=== PATIENT | female | born 1950 | race Two or more races ===

== ENCOUNTER 2018-06-27 19:23 | Inpatient (IN) | payer MEDICARE, OTHER ==
[~2018-06-27] VITALS: Ht 157.5 cm; Wt 72.7 kg
[~2018-06-27 19:23] MED LIST: LEVA15HF4 IH; NO CURRENT MEDS
--- NOTE | 2018-06-27 19:38 | NUR ---
PT PRESENTED TO THE ER WITH A C/O ASTHMA EXACERBATION. PT STATED THAT SHE HAS HAD A COLD FOR 3 DAYS AND USES A VENTOLIN INHALER WHICH HAS NOT HELPED. PT STATED THAT SHE WAS DX WITH ASTHMA 12-13 YRS AGO AND IT HAS NOT BEEN BAD. TODAY SHE IS HAVING A HARD TIME TAKING A DEEP BREATH WITHOUT COUGHING. Betsy CAMPBELL PAC IS AT THE BEDSIDE EVALUATING THE PT.
[2018-06-27] MEDS ORDERED: predniSONE 20 MG TABLET ONE (19:43)
--- NOTE | 2018-06-27 19:44 | NUR ---
RT CALLED RE: BREATHING TX.
--- NOTE | 2018-06-27 19:46 | NUR ---
CXR DONE AT THE BEDSIDE.
[2018-06-27] MEDS ORDERED: ALBUTEROL FS 2.5 MG/3 ML VIAL.NEB ONE (19:51)
[2018-06-27] MEDS ORDERED: IPRATROPIUM NEB FS 0.5 MG/2.5 ML AMPUL.NEB ONE (19:51)
[2018-06-27] MEDS ORDERED: ALBUTEROL FS 2.5 MG/3 ML VIAL.NEB CONTNEB ONE (20:00)
[2018-06-27] MEDS ORDERED: IPRATROPIUM NEB FS 0.5 MG/2.5 ML AMPUL.NEB NEB ONE (20:00)
[2018-06-27] MEDS ORDERED: predniSONE 20 MG TABLET PO ONE (20:00)
--- NOTE | 2018-06-27 20:42 | NUR ---
PT APPEARS TO BE COMFORTABLE. BREATHING TX IS IN PROGRESS.
--- NOTE | 2018-06-27 21:01 | NUR ---
CALLED NIDHI RE: CXR. CXR TO BE READ.
--- NOTE | 2018-06-27 21:06 | NUR ---
BREATHING TX IS FINISHED. PT SOUNDS BETTER AND RESP ARE EVEN AND UNLABORED.
[2018-06-27] MEDS ORDERED: AZITHROMYCIN 250 MG TABLET ONE (21:20)
--- NOTE | 2018-06-27 21:24 | NUR ---
PT REC'D MEDICATION ORDERED. BLOOD WAS DRAWN BY AIR TRAFFIC CONTROL SPECIALIST AND EKG IS IN PROGRESS AT THE BEDSIDE.
[2018-06-27 21:27] LABS: BASOPHILS % (AUTO) 0.6 % (0.0-2.0); HEMATOCRIT 36 % (33-45); HEMOGLOBIN 12.6 g/dL (11.5-14.8); LYMPHOCYTES # (AUTO) 1.8 /CMM (0.8-4.8); LYMPHOCYTES % (AUTO) 29.5 % (20.0-44.0); MEAN CORPUSCULAR HGB CONC 35 g/dl (31.0-36.0); MEAN CORPUSCULAR VOLUME 84 fL (82-100); MONOCYTES # (AUTO) 0.5 /CMM (0.1-1.30); MONOCYTES % (AUTO) 8.3 % (2.0-12.0); NEUTROPHILS # (AUTO) 3.1 /CMM (1.8-8.9); NEUTROPHILS % (AUTO) 51.6 % (43.0-81.0); PLATELET COUNT (AUTO) 147 /CMM (150-450); WHITE BLOOD COUNT (AUTO) 6.1 K/uL (4.3-11.0)
[2018-06-27] MEDS ORDERED: AZITHROMYCIN 250 MG TABLET PO ONE (21:30)
[2018-06-27 21:35] LABS: CALCIUM, SERUM 8.5 mg/dL (8.5-10.1); CREATININE 0.7 mg/dL (0.6-1.3); POTASSIUM 3.4 mmol/L (3.5-5.1)
[2018-06-27 21:52] LABS: ALBUMIN 3.3 g/dL (3.4-5.0); BILIRUBIN,DIRECT 0.1 mg/dL (0.0-0.2); BILIRUBIN,TOTAL 0.2 mg/dL (0.2-1.0); TOTAL PROTEIN, SERUM 6.4 g/dL (6.4-8.2)
--- NOTE | 2018-06-27 22:55 | NUR ---
DR MENDOZA IS AT THE BEDSIDE SPEAKING TO THE PT.
--- NOTE | 2018-06-27 23:03 | NUR ---
PT'S O2 SAT IS 92-93% ON RA. PT IS BEING PLACED ON 2L O2 VIA NC PRECAUTION.
[2018-06-27] MEDS ORDERED: CHOLESTEROL MED PO (23:27)
[2018-06-27] MEDS ORDERED: FISH OIL PO (23:27)
[2018-06-27] MEDS ORDERED: ASPI-1169 PO (23:27)
--- NOTE | 2018-06-27 23:30 | NUR ---
INFLUENZA SWAB DONE.
--- NOTE | 2018-06-27 23:34 | NUR ---
US TECH AT THE BEDSIDE FOR VENOUS DUPLEX.
--- NOTE | 2018-06-27 23:42 | NUR ---
CALLING REPORT TO TELE NURSE. FELIPE CLARK.
[2018-06-28] MEDS ORDERED: MAG HYDROX/AL HYDROX/SIMETH 30 ML UDC PO PRN
[2018-06-28] MEDS ORDERED: ONDANSETRON HCL/PF 4 MG/2 ML VIAL IVP PRN
[2018-06-28] MEDS ORDERED: HYDROCODONE/APAP 5/325MG 1 EACH TABLET PO PRN
[2018-06-28] MEDS ORDERED: IPRATROPIUM NEB FS 0.5 MG/2.5 ML AMPUL.NEB NEB PRN
[2018-06-28] MEDS ORDERED: HYDROCODONE/APAP 10/325MG 1 EA TABLET PO PRN
[2018-06-28] MEDS ORDERED: MAGNESIUM HYDROXIDE 30 ML UDC PO PRN
[2018-06-28] MEDS ORDERED: ALBUTEROL FS 2.5 MG/0.5 ML VIAL.NEB NEB PRN
[2018-06-28] MEDS ORDERED: TEMAZEPAM 15 MG CAPSULE PO PRN
--- NOTE | 2018-06-28 00:01 | NUR ---
VENOUS DUPLEX IS FINISHED AND IS NEGATIVE. B ADRIAN, PAC IS AWARE.
--- NOTE | 2018-06-28 00:22 | NUR ---
CALLED Emily SANTIAGO DNP RE: 2D ECHO STAT ORDER. 2D ECHO TO BE DONE IN THE MORNING.
[2018-06-28 00:23] VITALS: BP 144/77
--- NOTE | 2018-06-28 00:35 | NUR ---
TELE SENIOR SOFTWARE QA ENGINEER INITIAL NOTES ADMIT PT FROM ER VIA [facility] ACCOMPANIED BY ER NURSE AND TECH. DX OF PNA/CAP. PT IS ALERT ORIENTED , AMBULATORY, WITH O2 AT 2 LITERS VIA NC. NO SIGNS OF ANY ACUTE DISTRESS NOTED AT THIS TIME , STILL HAVE SOME WHEEZES HEARD THROUGHOUT , NO RALES OR RHONCHI. ABDOMEN SOFT AND NON-TENDER. POSITIVE BOWEL SOUNDS. NO EDEMA NOTED AND SKIN WARM AND DRY TOUCH. ORIENTED WHERE SHE AT AND HOW TO USED THE CALL LIGHT SYSTEM AND ENCOURAGED HER TO USE IF SHE NEEDS SOME HELP OR ASSISTANCE. TELE APPLIED TO HER CHEST WALL AND EXPLAINED TO THE PT THE PURPOSE OF IT AND PT UNDERSTOOD WELL. HEPLOCK PATENT AND INTACT. OFFERED LIGHT SNACKS . EDUCATE HER REGARDING HER MEDICATION WELL. KEPT HER WARM AND COMFORTABLE AT ALL TIMES ON SEMI FOWLERS POSITION WITH SIDE RAILS X2 UP. CALL LIGHT AT REACH. WILL CONTINUE MONITORING.
[2018-06-28] MEDS: ACETAMINOPHEN 325 MG TABLET PO PRN ×2 (01:03→12:52)
[2018-06-28 01:07] VITALS: BP 144/77
--- NOTE | 2018-06-28 04:00 | NUR ---
TELE STRIPPING AND BOOKING MACHINE OPERATOR NOTES PT SLEEPING COMFORTABLY IN BED WITHOUT ANY ACUTE DISTRESS NOTED TELE SINUS RHYTHM WITH PVC'S ON TELE MONITOR. KEPT HER WARM AND COMFORTABLE AT ALL TIMES. WILL CONTINUE MONITORING. CALL LIGHT AT REACH.
[2018-06-28 04:05] VITALS: BP 135/65
[2018-06-28] MEDS: methylPREDNISolone SOD SUCC 40 MG/ML VIAL IV SCH ×2 (05:40→12:42)
[2018-06-28 06:34] LABS: BASOPHILS % (AUTO) 0.2 % (0.0-2.0); EOSINOPHILS % (AUTO) 0.1 % (0.0-6.0); HEMATOCRIT 37 % (33-45); HEMOGLOBIN 12.6 g/dL (11.5-14.8); LYMPHOCYTES # (AUTO) 0.6 /CMM (0.8-4.8); LYMPHOCYTES % (AUTO) 13.4 % (20.0-44.0); MEAN CORPUSCULAR HGB CONC 34 g/dl (31.0-36.0); MEAN CORPUSCULAR VOLUME 84 fL (82-100); MONOCYTES # (AUTO) 0.1 /CMM (0.1-1.30); MONOCYTES % (AUTO) 1.2 % (2.0-12.0); NEUTROPHILS % (AUTO) 85.1 % (43.0-81.0); PLATELET COUNT (AUTO) 161 /CMM (150-450); RED BLOOD CELL COUNT(AUTO) 4.39 MIL/uL (4.0-5.2); WHITE BLOOD COUNT (AUTO) 4.7 K/uL (4.3-11.0)
[2018-06-28 06:54] LABS: CHOLESTEROL 178 mg/dL (<200); HDL CHOLESTEROL 54 mg/dL (40-60); LDL 117 mg/dL (0-99); TRIGLYCERIDES 21 mg/dL (30-150)
--- NOTE | 2018-06-28 07:00 | NUR ---
TELE SLAG WHEELER CLOSING NOTES PT AWAKE AND ALERT JUST DID HER OWN PERSONAL CARE. PT STATED "THANK YOU FOR PUTTING HUMIDIFIER ON MY O2 . MUCH FEEL BETTER. SLEPT WELL AND NO SIGNS OF ANY SOB. ROUTINE MEDS GIVEN ORDERED. STABLE AFTER ADMISSION. TELE SR WITH PVC'S . VITAL SIGNS WITHIN NORMAL LIMIT. KEPT HER WARM AND COMFORTABLE AT ALL TIMES. PLACE CALL LIGHT AT REACH. WILL CONTINUE MONITORING. ENDORSE.
[2018-06-28 07:01] LABS: CALCIUM, SERUM 8.7 mg/dL (8.5-10.1); CARBON DIOXIDE 23 mmol/L (21-32); CHLORIDE 109 mmol/L (98-107); CREATININE 0.7 mg/dL (0.6-1.3); GLUCOSE 147 mg/dL (74-106); MAGNESIUM 1.9 mg/dL (1.8-2.4); PHOSPHORUS 3.1 mg/dL (2.5-4.9); POTASSIUM 4.2 mmol/L (3.5-5.1); SODIUM SERUM 145 mmol/L (136-145); UREA NITROGEN, BLOOD 11 mg/dL (7-18)
--- NOTE | 2018-06-28 07:30 | NUR ---
SUPERVISOR DATA PROCESSING OPENING NOTE RECEIVED PATIENT IN BED. ALERT ORIENTED X4, ON 2L O2 VIA NC, TOLERATING WELL. IN NO APPARENT DISTRESS OR DISCOMFORT AT THIS TIME. RESPIRATIONS EVEN AND UNLABORED. DENIES PAIN AND SOB. ON TELE MONITOR WITH SR AND HR OF 75. LEFT AC 18G IVC SL, PATENT AND INTACT. PATIENT KEPT CLEAN AND COMFORTABLE, SAFETY MEASURES IN PLACE, BED IN LOW LOCKED POSITION, SIDE RAILS UP X2, CALL LIGHT WITHIN EASY REACH. WILL CONTINUE TO MONITOR.
[2018-06-28 08:00] VITALS: BP 128/70
[2018-06-28] MEDS: PANTOPRAZOLE 40 MG TABLET.DR PO SCH (08:42)
[2018-06-28] MEDS: CEFTRIAXONE 1 G in IV D5W 50 ML IV SCH (08:42)
[2018-06-28] MEDS ORDERED: ASPIRIN 81 MG TAB.CHEW PO SCH (09:00)
[2018-06-28] MEDS ORDERED: POTA-10 PO (12:21)
[2018-06-28] MEDS ORDERED: CARB200T8 PO (12:21)
[2018-06-28] MEDS ORDERED: FLUT1BLS INH (12:21)
[2018-06-28] MEDS ORDERED: OMEG1CAP55 PO (12:21)
[2018-06-28] MEDS ORDERED: FURO20TA4 PO (12:21)
[2018-06-28] MEDS ORDERED: TEMA15CA PO (12:21)
[2018-06-28] MEDS ORDERED: CLON0.1T PO (12:21)
[2018-06-28] MEDS ORDERED: RANI150T8 PO (12:21)
[2018-06-28] MEDS ORDERED: MECL-102 PO (12:21)
[2018-06-28] MEDS ORDERED: PROC10TA29 PO (12:21)
[2018-06-28] MEDS ORDERED: NIFE30TA91 PO (12:21)
[2018-06-28] MEDS ORDERED: ATOR40TA PO (12:21)
[2018-06-28] MEDS ORDERED: CLON0.5T12 PO (12:21)
[2018-06-28] MEDS ORDERED: FLUV50TA3 PO (12:21)
[2018-06-28] MEDS ORDERED: AMYL1CAP58 PO (12:21)
[2018-06-28] MEDS ORDERED: FLUT16SP BNOSTRILS (12:21)
[2018-06-28] MEDS: ALBUTEROL FS 2.5 MG/0.5 ML VIAL.NEB NEB SCH ×3 (15:23→23:30)
[2018-06-28] MEDS: IPRATROPIUM NEB FS 0.5 MG/2.5 ML AMPUL.NEB NEB SCH ×3 (15:32→23:30)
[2018-06-28 16:00] VITALS: BP 143/77
--- NOTE | 2018-06-28 19:16 | NUR ---
MS RN CLOSING NOTE PATIENT IN BED. ALERT ORIENTED X4, ON 2L O2 VIA NC, TOLERATING WELL. IN NO APPARENT DISTRESS OR DISCOMFORT AT THIS TIME. RESPIRATIONS EVEN AND UNLABORED. DENIES PAIN AND SOB. LEFT AC 18G IVC SL, PATENT AND INTACT. PATIENT KEPT CLEAN AND COMFORTABLE, ALL NEEDS ATTENDED, ORDERS RENDERED. SAFETY MEASURES IN PLACE, BED IN LOW LOCKED POSITION, SIDE RAILS UP X2, CALL LIGHT WITHIN EASY REACH. WILL ENDORSE TO PM NURSE FOR KUMAR.
--- NOTE | 2018-06-28 19:50 | NUR ---
MS RN NOTES RECEIVED PATIENT AWAKE IN BED AND WATCHING TV WITH NO DISTRESS NOTED. CALL LIGHT WITHIN REACH. NO C/O PAIN OR DISCOMFORT. PATIENT BREATHING EASILY WITH NO RESPIRATORY DISTRESS NOTED. PERIPHERAL LINE INTACT AND PATENT. ENCOURAGED USE OF CALL LIGHT FOR ASSISTANCE AND VERBALIZED GOOD UNDERSTANDING. BED IN LOW LOCK SETTING. ROOM FREE OF CLUTTER AND BELONGINGS KEPT NEAR BEDSIDE. WILL CONTINUE TO MONITOR.
[2018-06-28 20:00] VITALS: BP 137/80
[2018-06-29] MEDS: IPRATROPIUM NEB FS 0.5 MG/2.5 ML AMPUL.NEB NEB SCH ×3 (04:08→11:30)
[2018-06-29] MEDS: ALBUTEROL FS 2.5 MG/0.5 ML VIAL.NEB NEB SCH ×3 (04:08→11:30)
--- NOTE | 2018-06-29 06:42 | NUR ---
MS RN NOTES PATIENT ASLEEP IN BED WITH NO RESPIRATORY DISTRESS NOTED. CALL LIGHT WITHIN REACH. PERIPHERAL LINE INTACT AND PATENT. NO FURTHER C/O PAIN OR DISCOMFORT. BED IN LOW LOCK SETTING. ALL BELONGINGS KEPT NEAR BEDSIDE. WILL ENDORSE TO ONCOMING SHIFT.
[2018-06-29 07:31] LABS: CALCIUM, SERUM 8.7 mg/dL (8.5-10.1); CREATININE 0.6 mg/dL (0.6-1.3); PHOSPHORUS 3.6 mg/dL (2.5-4.9); POTASSIUM 4.5 mmol/L (3.5-5.1)
--- NOTE | 2018-06-29 07:48 | NUR ---
RN MS OPENING NOTES Received patient on 2L nasal cannula, no sob noted. patient denies pain at this time, patient appears comfortable. Patient's bed at the lowest setting, call light within reach.
[2018-06-29 07:49] LABS: BASOPHILS % (AUTO) 0.1 % (0.0-2.0); HEMATOCRIT 34 % (33-45); HEMOGLOBIN 11.8 g/dL (11.5-14.8); LYMPHOCYTES # (AUTO) 1.1 /CMM (0.8-4.8); LYMPHOCYTES % (AUTO) 8.1 % (20.0-44.0); MEAN CORPUSCULAR HGB CONC 34 g/dl (31.0-36.0); MEAN CORPUSCULAR VOLUME 84 fL (82-100); MONOCYTES # (AUTO) 0.8 /CMM (0.1-1.30); MONOCYTES % (AUTO) 5.4 % (2.0-12.0); NEUTROPHILS # (AUTO) 12.1 /CMM (1.8-8.9); NEUTROPHILS % (AUTO) 86.4 % (43.0-81.0); PLATELET COUNT (AUTO) 170 /CMM (150-450); RED BLOOD CELL COUNT(AUTO) 4.09 MIL/uL (4.0-5.2)
[2018-06-29 08:00] VITALS: BP 121/70
[2018-06-29] MEDS: CEFTRIAXONE 1 G in IV D5W 50 ML IV SCH (08:05)
[2018-06-29] MEDS: PANTOPRAZOLE 40 MG TABLET.DR PO SCH (08:19)
[2018-06-29] MEDS ORDERED: methylPREDNISolone SOD SUCC 40 MG/ML VIAL IV SCH (09:00)
--- NOTE | 2018-06-29 14:28 | NUR ---
RN MS DISCHARGE NOTES Patient left without waiting for the hospitalist to see her, she stated that she just needs the prescription and she can leave. Explained to the patient the benefits of waiting for the hospitalist to talk to her before she leaves, she decides to leave anyway. Patient did not sign anything but does have her prescription and I told her to follow up with her PCP after one week. Patient left with everything she came here with. Patient's vital sign was stable when she left. patient left with her .
== END 2018-06-29 13:00 | disposition home or self-care (01) | DRG 194 ==
LOC: ER 19:23 → TELE 06-28 00:09 → MED 06-28 09:03
PROVIDERS: ADMIT Nurse Practitioner Acute Care; ATTEND Internal Medicine
DX: J15.9 Unspecified bacterial pneumonia (principal); J45.901 Unspecified asthma with (acute) exacerbation; J20.9 Acute bronchitis, unspecified; E78.5 Hyperlipidemia, unspecified; E88.09 Other disorders of plasma-protein metabolism, not elsewhere classified; Z90.710 Acquired absence of both cervix and uterus; I70.0 Atherosclerosis of aorta
CPT/HCPCS: 36415; 71045-TC; 80048-TC; 80061-TC; 80076-TC; 83735-TC; 83880; 84100-TC; 84484-TC; 85025-TC; 85378-TC; 87081-TC; 87400; 93307-TC; 93970-TC; 94799-TC; G0378; J0696; J2920; J7050; J7060

== ENCOUNTER 2021-12-08 21:54 | Inpatient (IN) | payer MEDICARE, OTHER ==
[~2021-12-08] VITALS: Ht 157.5 cm; Wt 86.6 kg
[~2021-12-08 21:54] MED LIST changes: +AMYL1CAP58 PO; +ASPI-1169 PO; +ATOR40TA PO; +CARB200T8 PO; +CLON0.1T PO; +CLON0.5T4 PO; +FLUT16SP BNOSTRILS; +FLUT1BLS INH; +FLUV50TA3 PO; +FURO20TA4 PO; -LEVA15HF4 IH; +MECL-159 PO; +NIFE30TA91 PO; -NO CURRENT MEDS; +OMEG1CAP55 PO; +POTA-10 PO; +PROC10TA29 PO; +RANI150T8 PO; +TEMA15CA PO
[2021-12-08] MEDS ORDERED: ONDANSETRON HCL/PF 4 MG/2 ML VIAL ONE (22:43)
[2021-12-08] MEDS ORDERED: MORPHINE SULFATE INJ 4 MG/ML DISP.SYRIN ONE ×2 (22:44→23:27)
[2021-12-08 22:57] LABS: BILIRUBIN,URINE NEGATIVE (NEGATIVE); COLOR,URINE YELLOW (YELLOW); LEUKOCYTE ESTERASE ,URINE SMALL (NEGATIVE); NITRITE, URINE NEGATIVE (NEGATIVE); PROTEIN,URINE TRACE mg/dl (NEGATIVE); UGLUCOSE NEGATIVE (NEGATIVE); UROBILINOGEN,URINE 0.2 EU/dL (0.2)
[2021-12-08] MEDS ORDERED: MORPHINE SULFATE INJ 2 MG/ML DISP.SYRIN IV ONE (23:00)
[2021-12-08] MEDS ORDERED: IV NS 0.9% 1,000 ML BAG IV ONE (23:00)
[2021-12-08] MEDS ORDERED: ONDANSETRON HCL/PF 4 MG/2 ML VIAL IVP ONE (23:00)
--- NOTE | 2021-12-08 23:20 | NUR ---
BIBHUSBAND C/O ABD PAIN WITH N/V STARTED AT NOON. PT AWAKE AND ALERT X4 BREATHING UNLABORED / ABD PAIN. AMBULATES WITH STEADY GAIT. CHANGED INTO GOWN AND PLACED ON MONITOR AND V/S WNL.
--- NOTE | 2021-12-08 23:22 | NUR ---
20G AT [facility]. BLOOD DRAWN AND SENT.
--- NOTE | 2021-12-08 23:25 | NUR ---
ANKUR SENT TO LAB
[2021-12-08 23:32] LABS: BASOPHILS % (AUTO) 0.5 % (0.0-2.0); EOSINOPHILS % (AUTO) 2.2 % (0.0-6.0); HEMATOCRIT 43 % (33-45); HEMOGLOBIN 14.3 g/dL (11.5-14.8); LYMPHOCYTES # (AUTO) 1.5 K/uL (0.8-4.8); MEAN CORPUSCULAR HGB CONC 33 g/dl (31.0-36.0); MEAN CORPUSCULAR VOLUME 85 fL (82-100); MONOCYTES # (AUTO) 0.6 K/uL (0.1-1.30); MONOCYTES % (AUTO) 6.9 % (2.0-12.0); NEUTROPHILS # (AUTO) 5.9 K/uL (1.8-8.9); NEUTROPHILS % (AUTO) 72.4 % (43.0-81.0); PLATELET COUNT (AUTO) 156 K/uL (150-450); RED BLOOD CELL COUNT(AUTO) 5.07 MIL/uL (4.0-5.2); WHITE BLOOD COUNT (AUTO) 8.1 K/uL (4.3-11.0)
[2021-12-08 23:44] LABS: CALCIUM, SERUM 8.8 mg/dL (8.5-10.1); CARBON DIOXIDE 29 mmol/L (21-32); CHLORIDE 107 mmol/L (98-107); GLUCOSE 102 mg/dL (74-106); POTASSIUM 3.6 mmol/L (3.5-5.1); SODIUM SERUM 141 mmol/L (136-145); UREA NITROGEN, BLOOD 19 mg/dL (7-18)
[2021-12-08 23:51] LABS: ALANINE AMINOTRANSFERASE 29 U/L (12-78); ALBUMIN 3.5 g/dL (3.4-5.0); ALKALINE PHOSPHATASE 108 U/L (46-116); ASPARTATE AMINOTRANSFERASE 28 U/L (15-37); BILIRUBIN,DIRECT 0.2 mg/dL (0.0-0.2); BILIRUBIN,TOTAL 0.7 mg/dL (0.2-1.0); TOTAL PROTEIN, SERUM 6.7 g/dL (6.4-8.2)
[2021-12-09 00:18] LABS: LIPASE > 1500 U/L (73-393)
[2021-12-09] MEDS ORDERED: Z GUARD REMEDY 4 OZ OINT TP PRN (01:00)
[2021-12-09] MEDS ORDERED: HYDROMORPHONE INJ 2 MG/ML DISP.SYRIN IV PRN (01:00)
[2021-12-09] MEDS ORDERED: CARBAMAZEPINE 200 MG TABLET PO PRN (01:00)
[2021-12-09] MEDS ORDERED: MAGNESIUM HYDROXIDE 30 ML UDC PO PRN (01:00)
[2021-12-09] MEDS ORDERED: CLONIDINE HCL 0.1 MG TABLET PO PRN (01:00)
[2021-12-09] MEDS ORDERED: ACETAMINOPHEN 325 MG TABLET PO PRN (01:00)
[2021-12-09] MEDS ORDERED: MECLIZINE HCL 25 MG TABLET PO PRN (01:00)
[2021-12-09] MEDS ORDERED: PROCHLORPERAZINE MALEATE 10 MG TABLET PO PRN (01:00)
[2021-12-09] MEDS ORDERED: MAG HYDROX/AL HYDROX/SIMETH 30 ML UDC PO PRN (01:00)
[2021-12-09] MEDS ORDERED: clonazePAM 0.5 MG TABLET PO PRN (01:00)
[2021-12-09] MEDS ORDERED: ZOLPIDEM TARTRATE 5 MG TABLET PO PRN (01:00)
[2021-12-09] MEDS ORDERED: TEMAZEPAM 15 MG CAPSULE PO PRN (01:00)
[2021-12-09] MEDS ORDERED: ONDANSETRON HCL/PF 4 MG/2 ML VIAL IVP PRN (01:00)
--- NOTE | 2021-12-09 01:01 | NUR ---
SCRAP METAL PROCESSING WORKER AT BEDSIDE
--- NOTE | 2021-12-09 03:48 | NUR ---
REPORT GIVEN TO MEJIA FINLEY
--- NOTE | 2021-12-09 04:28 | NUR ---
pt transported to room 310 via [facility]
[2021-12-09 04:35] VITALS: BP 135/96
[2021-12-09] MEDS: IV NS 0.9% 1,000 ML IV PRN ×2 (04:43→12:55)
--- NOTE | 2021-12-09 04:45 | NUR ---
MS RN OPENING NOTE RECEIVED PATIENT FROM ER VIA [place]. PATIENT IS STABLE & AMBULATORY; ALERT AND ORIENTED X 4. ON ROOM AIR; TOLERATING WELL. BREATHING EVEN AND UNLABORED. NOT IN ANY FORM OF RESPIRATORY DISTRESS. VITAL SIGNS TAKEN AND RECORDED FOLLOWS: T 97.9, AZ 62, RR 18, BP 135/96 MM HG, O2 SAT 99%. ABLE TO MAKE NEEDS KNOWN. NO C/O PAIN OR DISCOMFORT AT THIS TIME, "PAIN IS TOLERABLE OF THIS MOMENT." VERBALIZED BY THE PT. WITH IV ACCESS ON LEFT ANTECUBITAL 20g; PATENT, INTACT AND SALINE LOCKED. BODY/SKIN ASSESSMENT DONE: WARM TO TOUCH AND INTACT. ORIENTED TO STAFF, ROOM AND UNIT. INVENTORY OF PERSONAL BELONGINGS DONE WITH MARKIE DODD. SAFETY MEASURES IMPLEMENTED: CALL LIGHT AND TABLE WITHIN REACH, SIDE RAILS UP X 2, BED IN LOWEST LOCKED POSITION. WILL CONTINUE TO MONITOR.
--- NOTE | 2021-12-09 06:55 | NUR ---
MS RN CLOSING NOTE PATIENT IN BED; AWAKE, A/O X 4. STABLE ON ROOM AIR. RESPIRATION EQUAL AND NONLABORED. IN NO ACUTE DISTRESS. DENIES ANY PAIN OR DISCOMFORT AT THIS TIME. WITH IV ACCESS ON LEFT AC 20g; PATENT AND INTACT RUNNING WITH NS 1L REGULATED @ 125 ML/HR; FLUSHES WELL. SAFETY MEASURES MAINTAINED: CALL LIGHT AND TABLE WITHIN REACH, SIDE RAILS UP X 2, BED IN LOWEST LOCKED POSITION. ENDORSED TO WILBUR FINLEY FOR KUMAR.
[2021-12-09] MEDS ORDERED: FAMOTIDINE (20 MG) 20 MG TABLET PO PRN (07:00)
--- NOTE | 2021-12-09 07:15 | NUR ---
ms rn received on bed, awake,alert,oriented x4,not in any form of distress, denies pain at this time, iv at left ac, infusing well,respirations even and unlabored, no sob noted,will monitor patient.
[2021-12-09 08:14] LABS: BACTERIA,URINE Few /HPF (None Seen); SQUAMOUS EPITHELIAL CELL,UR Moderate /HPF (None Seen); WBC,URINE 21-50 /HPF (0-3)
[2021-12-09 08:21] VITALS: BP 128/62
[2021-12-09] MEDS: ASPIRIN 81 MG TAB.CHEW PO SCH (08:51)
[2021-12-09] MEDS: POTASSIUM CHLORIDE 10 MEQ TABLET.SA PO SCH (08:51)
[2021-12-09] MEDS: FLUVOXAMINE MALEATE 50 MG TABLET PO SCH (08:52)
[2021-12-09] MEDS: NIFEdipine XL (30MG) 30 MG TAB PO SCH (08:53)
[2021-12-09] MEDS ORDERED: FUROSEMIDE 20 MG TABLET PO SCH (09:00)
[2021-12-09] MEDS ORDERED: Medication Not On Formulary EA (Omega-3 Acid Ethyl Esters (Lovaza) 2 GM) PO SCH (09:00)
[2021-12-09] MEDS: FLUTICASONE/VILANTEROL 1 EACH BLST.W.DEV IH SCH (09:29)
[2021-12-09] MEDS: PANTOPRAZOLE 40 MG VIAL IV SCH (09:29)
[2021-12-09] MEDS: FLUTICASONE PROPIONATE 16 GM BOTTLE NS SCH (09:44)
--- NOTE | 2021-12-09 10:30 | NUR ---
ms rn patient transferred to room 315-1 for comfort and privacy, waiting for bee stewart to see patient.
--- NOTE | 2021-12-09 12:00 | NUR ---
ms rn patient has been npo since yesterday,still waiting for bee stewart.no distress noted.
[2021-12-09 15:54] VITALS: BP 140/66
--- NOTE | 2021-12-09 17:22 | NUR ---
ms rn patient sleeping, denies pain at this time, waiting for bee to see patient.
--- NOTE | 2021-12-09 18:06 | NUR ---
ms rn was seen by bee stewart, vanessa/ orders made and carried out.
[2021-12-09 18:59] LABS: CHOLESTEROL 145 mg/dL (<200); HDL CHOLESTEROL 41 mg/dL (40-60); LDL 97 mg/dL (0-99); TRIGLYCERIDES 58 mg/dL (30-150)
[2021-12-09] MEDS ORDERED: IV NS 0.9% 1,000 ML IV PRN (19:03)
[2021-12-09 20:00] VITALS: BP 140/68
[2021-12-09] MEDS: CEPHALEXIN MONOHYDRATE 250 MG CAPSULE PO SCH (20:11)
--- NOTE | 2021-12-09 21:07 | NUR ---
RN NOTE PATIENT REQUESTED TO STOP IV FLUIDS FOR TONIGHT SO SHE CAN SLEEP BETTER. PATIENT IS ON CLEAR LIQUID DIET AND TOLERATING WELL. PER PATIENT SHE IS SIPPING ON LIQUIDS MUCH SHE CAN AND REFUSED TO HAVE IVF AT NIGHT. IVF STOPPED PER PATIENT REQUEST AND WILL START IN AM.
[2021-12-09] MEDS ORDERED: LIPASE/PROTEASE/AMYLASE 1 EACH CAPSULE.DR PO SCH (22:00)
[2021-12-09] MEDS ORDERED: ATORVASTATIN 40 MG TABLET PO SCH (22:00)
[2021-12-10 06:42] LABS: BASOPHILS % (AUTO) 0.2 % (0.0-2.0); EOSINOPHILS % (AUTO) 4.2 % (0.0-6.0); HEMATOCRIT 37 % (33-45); HEMOGLOBIN 12.7 g/dL (11.5-14.8); LYMPHOCYTES % (AUTO) 17.8 % (20.0-44.0); MEAN CORPUSCULAR HGB CONC 34 g/dl (31.0-36.0); MEAN CORPUSCULAR VOLUME 84 fL (82-100); MONOCYTES # (AUTO) 0.5 K/uL (0.1-1.30); MONOCYTES % (AUTO) 9.3 % (2.0-12.0); NEUTROPHILS % (AUTO) 68.5 % (43.0-81.0); PLATELET COUNT (AUTO) 138 K/uL (150-450); RED BLOOD CELL COUNT(AUTO) 4.42 MIL/uL (4.0-5.2); WHITE BLOOD COUNT (AUTO) 5.9 K/uL (4.3-11.0)
[2021-12-10 06:52] LABS: ALBUMIN 2.8 g/dL (3.4-5.0); BILIRUBIN,TOTAL 0.9 mg/dL (0.2-1.0); CALCIUM, SERUM 8.3 mg/dL (8.5-10.1); CREATININE 0.8 mg/dL (0.6-1.3); MAGNESIUM 1.7 mg/dL (1.8-2.4); PHOSPHORUS 3.1 mg/dL (2.5-4.9); POTASSIUM 3.5 mmol/L (3.5-5.1); TOTAL PROTEIN, SERUM 5.7 g/dL (6.4-8.2)
--- NOTE | 2021-12-10 07:20 | NUR ---
ms rn received on bed, awake,alert,oriented x4,not in any form of distress, respirations even and unlabored,no sob noted, patient denies abd pain at this time, will monitor patient.
--- NOTE | 2021-12-10 08:30 | NUR ---
ms phelps breakfast served, due meds given,tolerated well.
[2021-12-10] MEDS: PANTOPRAZOLE 40 MG VIAL IV SCH (09:30)
[2021-12-10] MEDS: FLUVOXAMINE MALEATE 50 MG TABLET PO SCH (09:30)
[2021-12-10 09:31] VITALS: BP 149/70
[2021-12-10] MEDS: CEPHALEXIN MONOHYDRATE 250 MG CAPSULE PO SCH ×2 (09:31→12:47)
[2021-12-10] MEDS: POTASSIUM CHLORIDE 10 MEQ TABLET.SA PO SCH (09:31)
[2021-12-10] MEDS: ASPIRIN 81 MG TAB.CHEW PO SCH (09:31)
[2021-12-10] MEDS: NIFEdipine XL (30MG) 30 MG TAB PO SCH (09:31)
[2021-12-10] MEDS: FLUTICASONE/VILANTEROL 1 EACH BLST.W.DEV IH SCH (09:41)
[2021-12-10] MEDS: FLUTICASONE PROPIONATE 16 GM BOTTLE NS SCH (09:42)
--- NOTE | 2021-12-10 10:00 | NUR ---
ms rn was seen by bee stewart ,awaiting for orders.
[2021-12-10] MEDS: Magnesium 1GM/D5W 100ML PREMIX 100 ML IV SCH ×2 (13:15→14:44)
--- NOTE | 2021-12-10 16:36 | NUR ---
ms rn was seen by bee stewart w/ order to go home today, d/c instructions given and understood, went home w/ ,all needs attended.no distress noted.
[2021-12-11] MEDS ORDERED: PANTOPRAZOLE 40 MG/PACK PACK PO SCH (09:00)
== END 2021-12-10 16:30 | disposition home or self-care (01) | DRG 439 ==
LOC: ER 22:24 → MED 12-09 03:44
PROVIDERS: ADMIT Nurse Practitioner Acute Care; ATTEND Nurse Practitioner Acute Care
DX: K85.30 Drug induced acute pancreatitis without necrosis or infection (principal); I50.32 Chronic diastolic (congestive) heart failure; N39.0 Urinary tract infection, site not specified; J45.909 Unspecified asthma, uncomplicated; Z20.822 Contact with and (suspected) exposure to COVID-19; Z85.42 Personal history of malignant neoplasm of other parts of uterus; Z90.49 Acquired absence of other specified parts of digestive tract; Z90.710 Acquired absence of both cervix and uterus; Z98.890 Other specified postprocedural states; Z79.51 Long term (current) use of inhaled steroids; Z79.82 Long term (current) use of aspirin; Z79.899 Other long term (current) drug therapy; T42.1X5A Adverse effect of iminostilbenes, initial encounter; Y92.009 Unspecified place in unspecified non-institutional (private) residence as the place of occurrence of the external cause; I11.0 Hypertensive heart disease with heart failure; E78.5 Hyperlipidemia, unspecified; F32.A Depression, unspecified; F41.9 Anxiety disorder, unspecified; I25.10 Atherosclerotic heart disease of native coronary artery without angina pectoris; R42 Dizziness and giddiness
CPT/HCPCS: 36415; 71045-TC; 76705-TC; 80048-TC; 80053-TC; 80061-TC; 80076-TC; 81001; 83690-TC; 83735-TC; 84100-TC; 84484-TC; 85025-TC; 85730-TC; 87081-TC; 87086-TC; C9113; C9803; G0378; J2270; J2405; J3475; J7030; Q0164